=== PATIENT | female | born 1995 | race Two or more races ===

== ENCOUNTER 2024-07-30 08:47 | Emergency (ER) | payer MEDICAID, SELFPAY ==
--- NOTE | 2024-07-30 08:57 | EKG_ITS ---
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
[2024-07-30 09:04] VITALS: BP 112/74; PULSE 82; PULSE 84; RESP 16; TEMP 36.6; O2SAT 96; O2SAT 99
[2024-07-30 09:05] VITALS: BP 112/74; PULSE 77; RESP 17; TEMP 36.6; O2SAT 100
[2024-07-30 09:10] VITALS: BMI 25.7
--- NOTE | 2024-07-30 09:41 | EDNOTE_ITS ---
ED Arrhythmia Palp. RME/HPI General Chief Complaint: Chest Pain Stated Complaint: CHEST PAIN Time Seen by Provider: 07/30/24 09:38 Arrival date/time: 07/30/24 08:47 RME / HPI RME / HPI narrative: 28 year old female with history of heart valve surgery, previous episodes of SVT presents to the ED BIBA from home for evaluation of palpitations today. States she was asleep and woke up sweating with a pounding sensation in chest, shaky, and felt near syncope. States she did not measure heart rate at home. Denies any recent illness, fevers, chills, cough, abdominal pain, n/v/d, or urinary symptoms. Per medics report, on their arrival patients heart rate on telemetry was 240's and was given 6mg of Adenosine. Patient converted to sinus rhythm. Related Data Home Medications ?Medication ?Instructions ?Recorded ?Confirmed Aspirin (Adult Low Dose Aspirin) 81 mg PO DAILY BLOOD THINNER ##0 12/28/12 07/30/24 Allergies Allergy/AdvReac Type Severity Reaction Status Date / Time acetaminophen Allergy Mild HIVES Verified 06/06/24 11:04 cefazolin sodium Allergy Unknown Rash Verified 06/06/24 11:04 Review of Systems Review of Systems Narrative Review of Systems: GEN: No fever, no chills, no weight loss EYES: No discharge, no visual changes, no pain HEENT: No ear pain, no congestion, no sore throat PULM: No shortness of breath, no cough, no congestion CV: +chest pain, +palpitations GI: No nausea, no vomiting, no diarrhea, no pain, no constipation : No frequency, no urgency and no dysuria MUSC/SKEL No joint pain, no back pain SKIN: No rash, +sweaty NEURO: No weakness, no headache ED Exam Narrative Physical exam: GENERAL APPEARANCE: Well hydrated, well nourished, in no acute distress. VITALS: All vitals were reviewed and the pulse ox is 100% on room air which is normal according to my interpretation. HEENT: Normocephalic, atramatic, EOMI, EACs are patent. There is no bulge or retraction. Throat without erythema or exudate. Moist oromucosa. No jaundice NECK: Supple, no JVD or bruits. CARDIOVASCULAR: Heart regular without S3-S4 or murmur. No rubs or gallops. LUNGS/CHEST: Clear to auscultation bilaterally. No rales, rhonchi, or wheezing. Normal inspection. ABDOMEN: Soft, nontender, with normal bowel sounds. No pulsatile masses. No rebound, rigidity, or guarding. No incarcerated hernia. Normal inspection and palpation. EXTREMITIES: Normal inspection and palpation. No edema, clubbing, or cyanosis. Intact CSM SKIN: Warm and dry without rashes. Normal inspection. MUSCULOSKELETAL: Normal inspection. No gross deformity, full ROM all extremities NEURO: Alert and oriented x3. Cranial nerves II through XII grossly intact. There are no other motor or sensory deficits noted. PSYCHIATRIC: Normal mood and affect. No psychosis. Course Quality Measures none Orders Category Date Time Status EKG (ED ONLY) *Do not use* NOW Care 07/30/24 08:57 Completed EKG (ED Only) Stat Exams 07/30/24 08:57 Ordered Vital Signs Vital signs: Vital Signs Temperature 97.9 F 07/30/24 09:04 Pulse Rate 84 07/30/24 09:04 Respiratory Rate 16 07/30/24 09:04 Blood Pressure 112/74 07/30/24 09:04 Pulse Oximetry (%) 96 07/30/24 09:04 Oxygen Delivery Method Room Air 07/30/24 09:04 Arrhythmia/Palpitations MDM Narrative MDM Narrative:: Nelli Mortensen am scribing for and in the presence of Dr. Hein. I reviewed the EKG strip from the manager actuarial. It is clearly showing that the patient had SVT en route to the hospital. However she was also converted by adenosine en route to the hospital to normal sinus rhythm. We kept the patient in the observation here for quite a number of hours and she is doing very well. She has no complaint at all. Twelve-lead EKG that was done at 12:18 PM and interpreted by me: Showing sinus rhythm. Heart rate of 76. Normal axis. No ST elevation or depression. No PVC. No STEMI. Regular rate and rhythm. She has the same T wave inversion in V1 and V2 as was in the EKG back in November 2023. CBC negative. CMP negative. Troponin negative. Thyroxine level negative. Magnesium negative. 12:20 PM, the patient is in asymptomatic. Vital signs are stable. She will go home. And rest. And follow-up with PMD. Patient data External records reviewed:: [facility] previous records (I reviewed ED visit on 11/29/2023 for SVT ) Clinical information provided by:: patient and EMS (Provided prehospital course) Social determinants that could affect healthcare access:: none Patient has the following chronic illnesses:: Heart valve surgery as an infant SVT How is presenting disease/condition affected by chronic disease/condition?: exacerbated by Evaluation data The following diagnostics were reviewed and interpreted by me:: lab results and EKG tracing(s) Lab and/or radiology exams considered but not ordered:: None Interpretation Summary: As noted above Medications / Prescriptions Medications or Prescriptions considered but not ordered:: None Medication administrations:: None Consultations Consultation(s) initiated? (list below): No Diagnosis Most likely diagnosis given after review of the tests above:: SVT Admission Indicated Admission indicated?: not indicated Admission Request Was there a request for admission?: No Disposition Plan Disposition Plan: Discharge Discharge Attestation Discharge Attestation: The patient and all family members were given an opportunity to ask questions and understood the discharge instructions. Discharge instructions specifically effects, indications for sooner follow up or return to the emergency department, and the expected course of current diagnosis. Patient condition: Stable Discharge Plan Plan Patient Disposition: HOME (Self Care) Disposition Comment: Stable for DC Prescriptions/Referrals Prescriptions/Med Rec: No Action Aspirin (Adult Low Dose Aspirin) 81 MG TABLET.DR 81 mg PO DAILY Qty: 0 Referrals: No Primary/Family,Physician [Primary Care Provider] - In 1 week Problem List Clinical Impression: SVT (supraventricular tachycardia) Patient/Caregiver Discharge Instructions Education Materials: Supraventricular Tachycardia Additional Instructions: Please follow-up with your medical doctor. Avoid heavy exertion. And avoid caffeine or cigarettes or any other cardiac stimulants. Return the emergency department if any problems. Print Language: Spanish Stand Alone Forms: Kassandra Award Info., Patient Portal Info Letter
[2024-07-30 09:56] VITALS: PULSE 84
--- NOTE | 2024-07-30 09:57 | PC.NURSE ---
PATIENT ARRIVED ED VIA EMS, PER REPORT PATIENT WOKE UP WITH CHEST PAIN 05/18. UPON EMS ARRIVAL PATIENT IN SVT AT 245. DURING TRANSPORT EMS STARTED IV AND ADMINISTERED 6 MG ADENOSINE WITH CONVERSION. UPON ARRIVAL TO ED PATIENT DENIES COMPLAINT OF PAIN. PATIENT PLACED ON MONITOR. WILL CONTINUE TO MONITOR.
[2024-07-30 10:04] VITALS: BP 96/66; PULSE 69; RESP 13; TEMP 36.7; O2SAT 96
[2024-07-30 10:46] LABS: Basophils % (Auto) 1 % (0-2.5); Eosinophils # (Auto) 0.2 Thou/mm3 (0.0-0.5); Eosinophils % (Auto) 3 % (0-10); Hemoglobin 11.4 g/dL (12.0-16.0); Immature Granulocytes % (Auto) 0 % (0-0); Immature Granulocytes Auto 0.01 Thou/mm3 (0.00-0.00); Lymphocytes # (Auto) 1.9 Thou/mm3 (1.0-4.8); Lymphocytes % (Auto) 31 % (10-50); Mean Corpuscular HGB Conc 30.8 g/dl (31.0-37.0); Mean Corpuscular Hemoglobin 25.1 pg (25.0-35.0); Mean Corpuscular Volume 82 fL (80-100); Monocytes # (Auto) 0.5 Thou/mm3 (0.0-0.8); Monocytes % (Auto) 8 % (0-12); Neutrophils # (Auto) 3.4 Thou/mm3 (1.8-7.7); Neutrophils % (Auto) 57 % (37-80); Nucleated Red Blood Cell % 0 /100 WBC (0); Platelet Count 308 Thou/mm3 (140-440); Red Blood Count 4.54 Miln/mm3 (4.00-5.20)
[2024-07-30 10:47] LABS: Alanine Aminotransferase 12 U/L (10-49); Albumin/Globulin Ratio 1.6 (1.2-2.2); Alkaline Phosphatase 72 U/L (46-116); Anion Gap 7 (7-16); Aspartate Amino Transferase 10 U/L (0-34); BUN/Creatinine Ratio 15 Ratio (12-20); Bilirubin,Total 0.5 mg/dL (0.3-1.2); Blood Urea Nitrogen 16 mg/dL (9-23); Calcium 8.7 mg/dL (8.3-10.6); Calcium (Corrected) 8.7 mg/dL (8.5-10.1); Carbon Dioxide 24.9 mMol/L (20.0-31.0); Chloride 106 mMol/L (98-107); Creatinine (Component) 1.1 mg/dL (0.6-1.3); Estimated Creatinine Clearance 73.5 mL/min (>60); Free T4 (Free Thyroxine) 1.08 ng/dL (0.89-1.76); Globulin 2.5 gm/dL (2.3-3.5); Glucose 116 mg/dL (74-106); Magnesium 1.9 mg/dL (1.6-2.6); Osmolality,Calculated 277 (275-295); Potassium 3.8 mMol/L (3.4-5.1); Sodium 138 mMol/L (136-145); Total Protein 6.5 gm/dL (5.7-8.2); Troponin I < 0.002 ng/mL (0.0-0.045); eGFR > 60 See Note
[2024-07-30 11:57] VITALS: BP 100/72; PULSE 64; RESP 16; O2SAT 98
[2024-07-30 12:35] VITALS: BP 99/68; PULSE 68; RESP 20; O2SAT 96
== END 2024-07-30 12:36 | disposition home or self-care (01) ==
PROVIDERS: Emergency Provider Emergency Medicine
DX: I47.10 Supraventricular tachycardia, unspecified (principal)
CPT/HCPCS: 36415; 80053; 83735; 84439; 84484; 85025; 93005; 99283

== ENCOUNTER 2025-03-28 00:09 | Emergency (ER) | payer SELFPAY ==
[2025-03-28 00:10] VITALS: BMI 26.5
--- NOTE | 2025-03-28 00:16 | EKG_ITS ---
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
--- NOTE | 2025-03-28 00:17 | EDNOTE_ITS ---
ED Arrhythmia Palp. RME/HPI General Chief Complaint: Arrhythmia/Palpitations Stated Complaint: PALPITATION Time Seen by Provider: 03/28/25 00:22 Arrival date/time: 03/28/25 00:09 RME / HPI RME / HPI narrative: See [facility] for HPI documentation. Related Data Home Medications ?Medication ?Instructions ?Recorded ?Confirmed Aspirin (Adult Low Dose Aspirin) 81 mg PO DAILY BLOOD THINNER ##0 12/28/12 07/30/24 Previous Rx's ?Medication ?Instructions ?Recorded alprazolam 0.5 mg tablet (Xanax) 0.5 mg PO BID PRN anx iety #10 tabs 03/28/25 Allergies Allergy/AdvReac Type Severity Reaction Status Date / Time acetaminophen Allergy Mild HIVES Verified 03/28/25 00:14 cefazolin sodium Allergy Unknown Rash Verified 03/28/25 00:14 Review of Systems Review of Systems Systems Reviewed: All systems reviewed, normal except as documented Past Medical History Past Medical History CARDIAC: Positive Cardiac Disorders, Cardiac Arrhythmia and Valvular Heart Disease (valve replacement); Negative Congestive Heart Failure RESPIRATORY: Negative Chronic Obstructive Pulmonary Disease (COPD) GENITOURINARY: Negative Renal Disease ENDOCRINE: Negative Diabetes Mellitus Type 1 or Diabetes Mellitus Type 2 OTHER HISTORY: Negative Autoimmune Disease Family History FAMILY HISTORY: Negative Family Psychiatric Problems, Family Respiratory Disorders, Family Cardiac Disorders, Family Gastrointestinal Problems, Family Cancer, Family Surgery or Family Anesthesia Reaction Surgical History SURGICAL: Positive Valve Replacement Social History SMOKING STATUS: Never smoker ED Exam Narrative Physical exam: See [facility] for physical exam documentation. Course Quality Measures none Orders Category Date Time Status EKG (ED ONLY) *Do not use* NOW Care 03/28/25 00:16 Active EKG (ED Only) Stat Exams 03/28/25 00:16 Ordered Arrhythmia/Palpitations [facility] Narrative [facility] Narrative:: This section includes all my notes and documentations, including HPI, PE, and ED course. 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 She also reports intense fear, sweating, chills, shaking, trouble breathing, chest pain, stomach pain, nausea, numbness and tingling in the hands and feet and face, confusion, hot flashes, and feeling faint. Reports similar symptoms occasionally. ROS: All negative except as documented in HPI. Physical Exam: General: Alert and oriented. Appears extremely anxious. Eyes: Conjunctivae and lids clear. ENT: No nasal congestion. Neck: Supple. Heart: RRR. Lungs: No respiratory distress. Good air movement. No rhonchi, wheezing, rales. Abdomen: Soft and nontender. Back: No CVA tenderness. Skin: Warm and dry. Neuro: Alert and oriented X 3. I reviewed all diagnostic test results. My interpretation of the EKG is sinus rhythm with nonspecific ST-T change. Blood tests and urine tests are unremarkable. At this point, diagnoses include palpitations due to anxiety. Patient given Xanax 0.5 mg. Significant improvement noted. Recommended outpatient management. Based on my best medical judgment, made decision no further evaluation or treatment indicated at this time. Patient understands and agrees to the discharge instructions customized and printed, see below. Discharge instructions from Dr. Goldstein: 1. After extensive evaluation, there is no life-threatening condition. Such as heart attack or pulmonary embolism (blood clots in your lungs) or pneumothorax (collapsed lung). 2. Your symptoms may be due to underlying stress or anxiety or nerves. This is fairly common. 3. Take Xanax as needed. Whether this helps or not will be valuable information to your private doctors. 4. If you want to make sure there is no serious underlying heart condition, you need to see a private doctor outside the ER. if possible. Ask to help you get more tests for your heart that cannot be done here in the ER. Such as Holter Monitor (cardiac monitoring at home from a day to even a month), heart stress test (on treadmill or with medication), echocardiogram (imaging of your heart structures), heart catherization (checking for blockages in your heart arteries), and a referral to see a Welding Supervisor. 5. Seek immediate medical care with worsening or with any concerns. Sam Goldstein MD Patient data External records reviewed:: [facility] previous records (Per chart review, patient was seen here on 07/30/24 for SVT.) Clinical information provided by:: patient Social determinants that could affect healthcare access:: none Patient has the following chronic illnesses:: none How is presenting disease/condition affected by chronic disease/condition?: no chronic disease Evaluation data The following diagnostics were reviewed and interpreted by me:: lab results and EKG tracing(s) (My interpretation of the EKG is: Sinus rhythm (82 bpm) with nonspecific ST-T changes. Sam Goldstein MD) Lab and/or radiology exams considered but not ordered:: none Interpretation Summary: I reviewed all diagnostic test results. My interpretation of the EKG is sinus rhythm with nonspecific ST-T change. Blood tests and urine tests are unremarkable. Medications / Prescriptions Medications or Prescriptions considered but not ordered:: none Medication administrations:: Xanax 0.5 mg Consultations Consultation(s) initiated? (list below): No Diagnosis Differential diagnosis arrhythmia/palpitations: palpitations, anxiety, sinus tachycardia, artial fibrillation, artial flutter, ventricular premature beats, supraventricular tachycardia, ventricular tachycardia and other Most likely diagnosis given after review of the tests above:: Palpitations due to anxiety Admission Indicated Admission indicated?: not indicated Explain why admission is indicated or not indicated:: With significant proven and no condition needing emergent intervention, there was no indication for admission. Admission Request Was there a request for admission?: No Disposition Plan Disposition Plan: Discharge Discharge Attestation Discharge Attestation: The patient and all family members were given an opportunity to ask questions and understood the discharge instructions. Discharge instructions specifically effects, indications for sooner follow up or return to the emergency department, and the expected course of current diagnosis. Patient condition: Stable Discharge Plan Plan Patient Disposition: HOME (Self Care) Prescriptions/Referrals Prescriptions/Med Rec: New alprazolam [Xanax] 0.5 mg tablet 0.5 mg PO BID PRN (Reason: anxiety) Qty: 10 0RF No Action Aspirin (Adult Low Dose Aspirin) 81 MG TABLET. 81 mg PO DAILY Qty: 0 Referrals: Thomas Reza MD [Primary Care Provider] - In 1 week Problem List Clinical Impression: Palpitations Patient/Caregiver Discharge Instructions Discharge Activity: activity as tolerated Education Materials: ED Anxiety Reaction, ED Panic Attack Additional Instructions: Discharge instructions from Dr. Goldstein: 1. After extensive evaluation, there is no life-threatening condition.? Such as heart attack or pulmonary embolism (blood clots in your lungs) or pneumothorax (collapsed lung). 2. Your symptoms may be due to underlying stress or anxiety or nerves.? This is fairly common. 3. Take Xanax as needed.? Whether this helps or not will be valuable information to your private doctors. 4. If you want to make sure there is no serious underlying heart condition, you need to see a private doctor outside the ER. if possible. Ask to help you get more tests for your heart that cannot be done here in the ER.? Such as Holter Monitor (cardiac monitoring at home from a day to even a month), heart stress test (on treadmill or with medication), echocardiogram (imaging of your heart structures), heart catherization (checking for blockages in your heart arteries), and a referral to see a Welding Supervisor. 5. Seek immediate medical care with worsening or with any concerns.?? Print Language: Romansh Stand Alone Forms: Kassandra Award Info., Work/School Release, Patient Portal Info Letter
[2025-03-28 00:24] VITALS: BP 126/82; PULSE 81; RESP 20; TEMP 36.5; O2SAT 98
[2025-03-28 01:03] LABS: Basophils # (Auto) 0.0 Thou/mm3 (0.0-0.2); Basophils % (Auto) 0 % (0-2.5); Eosinophils # (Auto) 0.2 Thou/mm3 (0.0-0.5); Eosinophils % (Auto) 2 % (0-10); Hematocrit 35.3 % (36.0-46.0); Hemoglobin 10.4 g/dL (12.0-16.0); Immature Granulocytes Auto 0.02 Thou/mm3 (0.00-0.00); Lymphocytes # (Auto) 1.7 Thou/mm3 (1.0-4.8); Lymphocytes % (Auto) 25 % (10-50); Mean Corpuscular HGB Conc 29.5 g/dl (31.0-37.0); Mean Corpuscular Hemoglobin 22.4 pg (25.0-35.0); Mean Corpuscular Volume 76 fL (80-100); Monocytes # (Auto) 0.5 Thou/mm3 (0.0-0.8); Monocytes % (Auto) 7 % (0-12); Neutrophils # (Auto) 4.5 Thou/mm3 (1.8-7.7); Neutrophils % (Auto) 66 % (37-80); Nucleated Red Blood Cell # 0.00 Thou/mm3 (0.00-0.00); Nucleated Red Blood Cell % 0 /100 WBC (0); Platelet Count 348 Thou/mm3 (140-440); RDW Standard Deviation 43.0 fL (36.4-46.3); Red Blood Count 4.65 Miln/mm3 (4.00-5.20); White Blood Count 6.9 Thou/mm3 (3.6-11.0)
[2025-03-28 01:19] LABS: D-Dimer < 250 ng/mL (<600)
[2025-03-28 01:20] LABS: B-Type Natriuretic Peptide 42 pg/mL (0-100)
[2025-03-28 01:29] LABS: Alanine Aminotransferase 13 U/L (10-49); Albumin, Serum 4.0 gm/dL (3.5-5.0); Albumin/Globulin Ratio 1.7 (1.2-2.2); Alkaline Phosphatase 74 U/L (46-116); Anion Gap 11 (7-16); Aspartate Amino Transferase 14 U/L (0-34); BUN/Creatinine Ratio 13 Ratio (12-20); Bilirubin,Direct < 0.1 mg/dL (0.0-0.3); Bilirubin,Total 0.4 mg/dL (0.3-1.2); Blood Urea Nitrogen 12 mg/dL (9-23); Calcium 9.1 mg/dL (8.3-10.6); Calcium (Corrected) 9.1 mg/dL (8.5-10.1); Carbon Dioxide 22.4 mMol/L (20.0-31.0); Chloride 109 mMol/L (98-107); Creatinine (Component) 0.9 mg/dL (0.6-1.3); Estimated Creatinine Clearance 83.6 mL/min (>60); Free T3 2.9 pg/mL (2.3-4.2); Free T4 (Free Thyroxine) 1.13 ng/dL (0.89-1.76); Globulin 2.4 gm/dL (2.3-3.5); Glucose 130 mg/dL (74-106); Magnesium 1.8 mg/dL (1.6-2.6); Osmolality,Calculated 284 (275-295); Potassium 3.7 mMol/L (3.4-5.1); Sodium 142 mMol/L (136-145); Thyroid Stimulating Hormone 7.43 uIU/mL (0.55-4.78); Total Protein 6.4 gm/dL (5.7-8.2); Troponin I < 0.002 ng/mL (0.0-0.045); eGFR > 60 See Note
[2025-03-28 01:37] LABS: HCG,Qualitative Serum Negative
== END 2025-03-28 01:45 | disposition home or self-care (01) ==
PROVIDERS: Emergency Provider Emergency Medicine; PCP Family Medicine
DX: R00.2 Palpitations (principal)
CPT/HCPCS: 36415; 80053; 82248; 83735; 83880; 84439; 84443; 84481; 84484; 84703; 85025; 85379; 93005; 99282; A9270

== ENCOUNTER 2025-08-03 05:10 | Emergency (ER) | payer MEDICAID, SELFPAY ==
[2025-08-03 05:11] VITALS: BMI 24.2
--- NOTE | 2025-08-03 05:14 | EKG_ITS ---
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
[2025-08-03 05:24] VITALS: BP 122/87; PULSE 66; RESP 16; TEMP 36.4; O2SAT 96
--- NOTE | 2025-08-03 05:27 | XR_ITS ---
EXAMINATION: PA chest single view TECHNIQUE: Upright PA chest single view Date and time: August 03, 2025, 0535 hours, comparison November 29, 2023 INDICATIONS: Shortness of breath today. FINDINGS: Mild to moderate enlargement left ventricle Retrocardiac gastric hernia Prominent central vascular congestion with possible early septal edema Prominent osteopenia IMPRESSION: Mild heart failure Consider superimposed bilateral perihilar pneumonia
--- NOTE | 2025-08-03 05:28 | EDRME_ITS ---
Rapid Medical Screening Exam [facility] Arrival date/time: 08/03/25 05:10 29F with history of anxiety, SVT, and heart valve replacement presents to ED with 2 days of heart palps and some SOB. Patient denies URI symptoms. Chief Complaint: Anxiety Vital signs: Vital Signs Temperature 97.5 F 08/03/25 05:24 Pulse Rate 66 08/03/25 05:24 Respiratory Rate 16 08/03/25 05:24 Blood Pressure 122/87 H 08/03/25 05:24 Pulse Oximetry (%) 96 08/03/25 05:24 Oxygen Delivery Method Room Air 08/03/25 05:24 Exam: Clear lungs and normal WOB. RRR. Anxious. Clinical Impression: anxiety vs valve dydsfunction vs CHF vs CAP vs URI vs PE vs drug/alcohol use vs electrolyte abnormality
--- NOTE | 2025-08-03 06:22 | PD.EDCHEST ---
ED Chest Pain RME/HPI General Chief Complaint: Anxiety Stated Complaint: ANXIETY Time Seen by Provider: 08/03/25 06:20 Source: patient Arrival date/time: 08/03/25 05:10 29-year-old female with a history of heart valve replacement, SVT, presents to the emergency room with a chief complaint of palpitations and shortness of breath x 2 days Mode of arrival: ambulatory Limitations: no limitations RME / HPI RME / HPI narrative: 08/03/25 05:10 29F with history of anxiety, SVT, and heart valve replacement presents to ED with 2 days of heart palps and some SOB. Patient denies URI symptoms. Exam: Clear lungs and normal WOB. RRR. Anxious. Impression: anxiety vs valve dydsfunction vs CHF vs CAP vs URI vs PE vs drug/alcohol use vs electrolyte abnormality Related Data Home Medications ?Medication ?Instructions ?Recorded ?Confirmed Aspirin (Adult Low Dose Aspirin) 81 mg PO DAILY BLOOD THINNER ##0 12/28/12 07/30/24 Previous Rx's ?Medication ?Instructions ?Recorded alprazolam 0.5 mg tablet (Xanax) 0.5 mg PO BID PRN anxiety #10 tabs 03/28/25 azithromycin 250 mg tablet See Rx Instructions PO .COMPLEX #6 08/03/25 (Zithromax Z-River) tabs Allergies Allergy/AdvReac Type Severity Reaction Status Date / Time acetaminophen Allergy Mild HIVES Verified 08/03/25 05:13 cefazolin sodium Allergy Unknown Rash Verified 08/03/25 05:13 Review of Systems Review of Systems Systems Reviewed: All systems reviewed, normal except as documented Constitutional Constitutional: Reports system reviewed and no additional complaints, except as documented, Denies fatigue, Denies fever(s), Denies headache(s) and Denies weakness Eyes Eyes: Reports system reviewed and no additional complaints, except as documented, Denies blurry vision and Denies change in vision ENT Ears, Nose, Mouth, and Throat: Reports system reviewed and no additional complaints, except as documented, Denies otalgia, Denies headache(s), Denies nasal congestion, Denies throat swelling and Denies vertigo Cardiovascular Cardiovascular: Reports system reviewed and no additional complaints, except as documented, Reports chest pain, Denies dyspnea, Denies dyspnea on exertion, Reports orthopnea, Reports palpitations, Reports paroxysmal nocturnal dyspnea and Reports rapid heart rate Respiratory Respiratory: Reports system reviewed and no additional complaints, except as documented, Denies chest congestion, Denies cough, Denies dyspnea, Denies dyspnea on exertion and Denies wheezing Gastrointestinal Gastrointestinal: Reports system reviewed and no additional complaints, except as documented, Denies abdominal pain, Denies cramping, Denies nausea and Denies vomiting Genitourinary Genitourinary: Reports system reviewed and no additional complaints, except as documented Musculoskeletal Musculoskeletal: Reports system reviewed and no additional complaints, except as documented and Denies back pain Integumentary/Breasts Skin/Breast: Reports system reviewed and no additional complaints, except as documented and Denies wounds Neurologic Neurologic: Reports system reviewed and no additional complaints, except as documented, Denies confusion, Denies headache(s), Denies lack of coordination, Denies vertigo and Denies weakness Psychiatric Psychiatric: Reports system reviewed and no additional complaints, except as documented, Denies anxiety, Denies confusion, Denies depression, Denies paranoia, Denies suicidal ideation and Denies tactile hallucinations Endocrine Endocrine: Reports system reviewed and no additional complaints, except as documented, Denies fatigue and Reports palpitations Hematologic/Lymphatic Hematologic/Lymphatic: Reports system reviewed and no additional complaints, except as documented and Denies lymphadenopathy Allergic/Immunologic Allergic/Immunologic: Reports system reviewed and no additional complaints, except as documented, Denies throat swelling, Denies urticaria and Denies wheezing Past Medical History Past Medical History CARDIAC: Positive Cardiac Disorders, Cardiac Arrhythmia and Valvular Heart Disease (valve replacement); Negative Congestive Heart Failure RESPIRATORY: Negative Chronic Obstructive Pulmonary Disease (COPD) GENITOURINARY: Negative Renal Disease ENDOCRINE: Negative Diabetes Mellitus Type 1 or Diabetes Mellitus Type 2 OTHER HISTORY: Negative Autoimmune Disease Family History FAMILY HISTORY: Negative Family Psychiatric Problems, Family Respiratory Disorders, Family Cardiac Disorders, Family Gastrointestinal Problems, Family Cancer, Family Surgery or Family Anesthesia Reaction Surgical History SURGICAL: Positive Valve Replacement Social History SMOKING STATUS: Never smoker ED Exam General Limitations: Present no limitations General appearance: Present alert and in no apparent distress Head Head exam: Present atraumatic Eye Eye exam: Present normal appearance, PERRL and EOMI ENT ENT exam: Present normal exam, normal oropharynx and mucous membranes moist Neck Neck exam: Present normal inspection, full ROM and trachea midline Chest Chest inspection: Present normal inspection and symmetric chest wall rise Respiratory Respiratory exam: Present normal lung sounds bilaterally; Absent respiratory distress, wheezes, stridor, accessory muscle use or prolonged expiratory phase Cardiovascular Cardiovascular exam: Present regular rate, normal rhythm, normal heart sounds, +S1 and +S2; Absent bradycardia, tachycardia, irregular rhythm, systolic murmur, diastolic murmur, rubs, gallop, clicks or JVD Abdominal Exam Abdominal exam: Present soft and normal bowel sounds Extremities Exam Extremities exam: Present normal inspection and full ROM Back Exam Back exam: Present normal inspection and full ROM Neurological Exam Neurological exam: Present alert, oriented X3 and CN II-XII intact Psychiatric Psychiatric exam: Present normal affect and normal mood Skin Skin exam: Present warm, dry, intact and normal color Course Quality Measures none Orders Category Date Time Status EKG (ED ONLY) *Do not use* NOW Care 08/03/25 05:14 Completed EKG (ED Only) Stat Exams 08/03/25 05:14 Draft XR chest 1V portable Stat Exams 08/03/25 05:27 Completed B-Type Natriuretic Peptide Stat Lab 08/03/25 05:25 Completed CBC Stat Lab 08/03/25 05:25 Completed Comprehensive Metabolic Panel Stat Lab 08/03/25 05:25 Completed Magnesium Stat Lab 08/03/25 05:25 Completed Troponin I Stat Lab 08/03/25 05:25 Completed Diazepam [Valium] Med 08/03/25 05:27 Discontinued 5 mg PO X1 ONE Vital Signs Vital signs: Vital Signs Temperature 97.5 F 08/03/25 05:24 Pulse Rate 66 08/03/25 05:24 Respiratory Rate 16 08/03/25 05:24 Blood Pressure 122/87 H 08/03/25 05:24 Pulse Oximetry (%) 96 08/03/25 05:24 Oxygen Delivery Method Room Air 08/03/25 05:24 PROCEDURES: EKG Interpretation #1: Date of EK08/03/25 Rate: 69 Interpretation: Reviewed by me EKG Impression: Normal sinus rhythm Chest Pain MDM Narrative MDM Narrative:: 29-year-old female with a history of heart valve replacement, SVT, presents to the emergency room with a chief complaint of palpitations and shortness of breath x 2 days Patient is hemodynamically stable and in no apparent distress Physical examination shows clear bilateral lung sounds there is no wheezing or any abnormal breath sounds The patient has a strong and regular rhythm S1 and S2 noted. No clicks no murmurs no JVD EKG shows normal sinus rhythm with no ST deviation. CBC CMP were all within normal limits Chest x-ray shows early bilateral pneumonia Patient was discharged and educated to follow-up with primary care provider in the next 24 to 48 hours and return to the emergency room for any evidence of worsening signs or symptoms Patient data External records reviewed:: [facility] previous records Clinical information provided by:: patient Social determinants that could affect healthcare access:: none Patient has the following chronic illnesses:: No chronic illness How is presenting disease/condition affected by chronic disease/condition?: no chronic disease Evaluation data The following diagnostics were reviewed and interpreted by me:: lab results and radiology exam(s) Lab and/or radiology exams considered but not ordered:: Labs and radiology exams considered and ordered Interpretation Summary: Chest [id number]: Mild to moderate enlargement left ventricle Retrocardiac gastric hernia Prominent central vascular congestion with possible early septal edema Prominent osteopenia IMPRESSION: Mild heart failure Consider superimposed bilateral perihilar pneumonia Medications / Prescriptions Medications or Prescriptions considered but not ordered:: Medication given Medication administrations:: Medication Administration History Discontinued Medications Diazepam (Diazepam 5 Mg Tablet) 5 mg PO X1 ONE Stop: 08/03/25 05:28 Last Admin: 08/03/25 06:33 Dose: 5 mg Documented By: JULIOCESAR Medication given Consultations Consultation(s) initiated? (list below): No Diagnosis Chest Pain Differential Diagnosis: stable angina, unstable angina pectoris, atypical chest pain, st elevation myocardial infarction, costochondritis, chest pain and other (/Community-acquired pneumonia) Most likely diagnosis given after review of the tests above:: Community-acquired pneumonia Admission Indicated Admission indicated?: not indicated Admission Request Was there a request for admission?: No Disposition Plan Disposition Plan: Discharge Discharge Attestation Discharge Attestation: The patient and all family members were given an opportunity to ask questions and understood the discharge instructions. Discharge instructions specifically effects, indications for sooner follow up or return to the emergency department, and the expected course of current diagnosis. Patient condition: Stable Discharge Plan Plan Patient Disposition: HOME (Self Care) Discharge Disposition comment: Stable Prescriptions/Referrals Prescriptions/Med Rec: New azithromycin [Zithromax Z-River] 250 mg tablet See Rx Instructions .ROUTE .COMPLEX Qty: 6 0RF Rx Instructions: For 250 mg dose pack: take 500 mg today (day 1), then 250 mg for 4 days (days 2-5) No Action Aspirin (Adult Low Dose Aspirin) 81 MG TABLET. 81 mg PO DAILY Qty: 0 alprazolam [Xanax] 0.5 mg tablet 0.5 mg PO BID PRN (Reason: anxiety) Qty: 10 0RF Referrals: Thomas Reza MD [Primary Care Provider, Family Practice] - In 1 week Problem List Clinical Impression: Palpitations, Community acquired pneumonia Patient/Caregiver Discharge Instructions Education Materials: ED About Arrhythmias, ED Palpitations Additional Instructions: Please follow-up with your primary care provider in the next 24 to 48 hours Your cardiac examination today was within normal limits Your EKG showed normal sinus rhythm and is within normal limits For any evidence of worsening signs or symptoms return to the emergency room immediately Print Language: Hebrew Stand Alone Forms: Kassandra Award Info., Work/School Release, Patient Portal Info Letter PA/INSTALLATION AND SERVICE TECHNICIAN Supervising Physician PA/INSTALLATION AND SERVICE TECHNICIAN Supervising Physician: Dr. Barry
[2025-08-03] MEDS: DIAZEPAM 5 MG TABLET PO (06:33)
[2025-08-03 06:50] LABS: Basophils # (Auto) 0.0 Thou/mm3 (0.0-0.2); Basophils % (Auto) 1 % (0-2.5); Eosinophils # (Auto) 0.2 Thou/mm3 (0.0-0.5); Eosinophils % (Auto) 4 % (0-10); Hematocrit 41.3 % (36.0-46.0); Hemoglobin 12.6 g/dL (12.0-16.0); Immature Granulocytes Auto 0.01 Thou/mm3 (0.00-0.00); Lymphocytes # (Auto) 1.6 Thou/mm3 (1.0-4.8); Lymphocytes % (Auto) 26 % (10-50); Mean Corpuscular HGB Conc 30.5 g/dl (31.0-37.0); Mean Corpuscular Hemoglobin 24.1 pg (25.0-35.0); Mean Corpuscular Volume 79 fL (80-100); Monocytes # (Auto) 0.5 Thou/mm3 (0.0-0.8); Monocytes % (Auto) 8 % (0-12); Neutrophils # (Auto) 3.8 Thou/mm3 (1.8-7.7); Neutrophils % (Auto) 62 % (37-80); Nucleated Red Blood Cell # 0.00 Thou/mm3 (0.00-0.00); Nucleated Red Blood Cell % 0 /100 WBC (0); Platelet Count 317 Thou/mm3 (140-440); RDW Standard Deviation 49.6 fL (36.4-46.3); Red Blood Count 5.23 Miln/mm3 (4.00-5.20); White Blood Count 6.1 Thou/mm3 (3.6-11.0)
[2025-08-03 07:19] LABS: Alanine Aminotransferase 19 U/L (10-49); Albumin, Serum 4.2 gm/dL (3.5-5.0); Albumin/Globulin Ratio 1.4 (1.2-2.2); Alkaline Phosphatase 75 U/L (46-116); Anion Gap 11 (7-16); Aspartate Amino Transferase 22 U/L (0-34); BUN/Creatinine Ratio 17 Ratio (12-20); Bilirubin,Total 0.4 mg/dL (0.3-1.2); Blood Urea Nitrogen 17 mg/dL (9-23); Calcium 8.8 mg/dL (8.3-10.6); Calcium (Corrected) 8.8 mg/dL (8.5-10.1); Carbon Dioxide 25.5 mMol/L (20.0-31.0); Chloride 106 mMol/L (98-107); Creatinine (Component) 1.0 mg/dL (0.6-1.3); Estimated Creatinine Clearance 63.6 mL/min (>60); Globulin 2.9 gm/dL (2.3-3.5); Glucose 94 mg/dL (74-106); Magnesium 1.8 mg/dL (1.6-2.6); Osmolality,Calculated 284 (275-295); Potassium 4.7 mMol/L (3.4-5.1); Sodium 142 mMol/L (136-145); Total Protein 7.1 gm/dL (5.7-8.2); Troponin I < 0.002 ng/mL (0.0-0.045); eGFR > 60 See Note
[2025-08-03 07:25] LABS: B-Type Natriuretic Peptide < 20 pg/mL (0-100)
[2025-08-03 07:44] VITALS: BP 117/80; PULSE 74; RESP 18; TEMP 36.6; O2SAT 96
--- NOTE | 2025-08-03 08:01 | PC.NURSE ---
ATTEMPTED TO CALL PT; NO ANSWER. CALLED PT'S MOTHER, AND MADE AWARE PT HAS RX'D ANTIBIOTICS FOR PNEUMONIA. PER MOM, WILL GO TELL MY DAUGHTER AND AUTOMATED LOGISTICS SPECIALIST HER MEDICATION AT THE PHARMACY.
== END 2025-08-03 07:47 | disposition home or self-care (01) ==
PROVIDERS: Physician Assistant; Emergency Provider Emergency Medicine; PCP Family Medicine
DX: J18.9 Pneumonia, unspecified organism (principal); I50.9 Heart failure, unspecified; I47.10 Supraventricular tachycardia, unspecified; Z95.2 Presence of prosthetic heart valve
CPT/HCPCS: 36415; 71045; 80053; 83735; 83880; 84484; 85025; 93005; 99283; A9270